=== PATIENT | female | born 1985 | race Caucasian/White ===

== ENCOUNTER 2023-04-02 05:03 | Emergency (ER) | payer OTHER ==
[~2023-04-02] VITALS: Ht 162.6 cm; Wt 81.7 kg
[2023-04-02 05:05] VITALS: BP 143/91
== END 2023-04-02 05:53 | disposition home or self-care (01) ==
LOC: ER 05:03
DX: F11.23 Opioid dependence with withdrawal (principal)
CPT/HCPCS: 99283; A9270